=== PATIENT | male | born 1955 | race Caucasian/White ===

== ENCOUNTER 2017-02-21 14:01 | Day surgery (SDC) | payer OTHER ==
[~2017-02-21] VITALS: Ht 175.3 cm; Wt 75.5 kg
[~2017-02-21 14:01] MED LIST: ASPIRIN E.C. 8181 MG PO; ATIVAN2 MG PO; DESYREL 50MG50 MG PO; LEVSIN 0.10.125 MG/T PO; LIPITOR 80MG80 MG PO; NITROSTAT0.4 MG/TAB SL; NO HOME MEDICATIONS; NORVASC 10MG10 MG PO; PEPCID 20MG TAB20 MG PO; PLAVIX 75MG TAB75 MG PO; PLETAL 100MG T100 MG PO; PRILOSEC 20MG20 MG PO; REGLAN 5MG T5 MG/TAB PO; SEROQUEL50 MG PO; TOPROL XL 25MG25 MG PO; UNABLE; ZOLOFT 50MG50 MG PO
[2017-02-21] MEDS ORDERED: AMITRIPTYLINE H10 M1 PO (14:23)
[2017-02-21] MEDS ORDERED: FLOMAX 0.40.4 MG/CAP PO (14:23)
[2017-02-21] MEDS ORDERED: NORVASC 10MG10 MG PO (14:24)
[2017-02-21] MEDS ORDERED: PRINIVIL5 MG PO (14:24)
[2017-02-21 14:45] VITALS: BP 143/75; PULSE 90; TEMP 98.4
[2017-02-21 15:55] VITALS: BP 136/80; PULSE 83; TEMP 97.8
[2017-02-21 16:00] VITALS: BP 141/81; PULSE 82
[2017-02-21 16:15] VITALS: BP 139/82; PULSE 87
[2017-02-21 16:30] VITALS: BP 139/79; PULSE 79
== END 2017-02-21 17:16 | disposition home or self-care (01) ==
LOC: SDCO 14:01
DX: Z12.11 Encounter for screening for malignant neoplasm of colon (principal); D12.5 Benign neoplasm of sigmoid colon; D12.3 Benign neoplasm of transverse colon; D12.8 Benign neoplasm of rectum; E78.5 Hyperlipidemia, unspecified; I25.10 Atherosclerotic heart disease of native coronary artery without angina pectoris; F41.9 Anxiety disorder, unspecified; I10 Essential (primary) hypertension; I73.9 Peripheral vascular disease, unspecified; Z79.82 Long term (current) use of aspirin; Z79.899 Other long term (current) drug therapy; F17.210 Nicotine dependence, cigarettes, uncomplicated
CPT/HCPCS: OP; J2250; J3010; J7030

== ENCOUNTER → 2018-03-29 | Outpatient (CLI) | payer OTHER ==
[~2018-03-29] MED LIST changes: +AMITRIPTYLINE H10 M1 PO; +FLOMAX 0.40.4 MG/CAP PO; +PRINIVIL5 MG PO
== END ==
LOC: COL.PUL 03-14 11:30
DX: J44.9 Chronic obstructive pulmonary disease, unspecified (principal); F17.210 Nicotine dependence, cigarettes, uncomplicated

== ENCOUNTER → 2019-07-16 | Outpatient (CLI) | payer OTHER | LOC: COL.RAD 07:37 | DX: I65.23 Occlusion and stenosis of bilateral carotid arteries (principal); I65.01 Occlusion and stenosis of right vertebral artery | CPT/HCPCS: Q9967 ==